=== PATIENT | female | born 1950 | race Caucasian/White ===

== ENCOUNTER → 2016-05-25 | Outpatient (CLI) | payer MEDICARE ==
--- NOTE | 2016-05-26 09:57 | ECHOF ---
Referral Reason:R06.09 Dyspnea on exertion MEASUREMENTS -------- HEIGHT: 157.5 cm WEIGHT: 65.8 kg BP: 176/79 RVIDd: 3.2 cm (< 3.3) IVSd: 1.2 cm (0.6 - 1.1) LVIDd: 3.5 cm (3.9 - 5.3) LVPWd: 1.0 cm (0.6 - 1.1) IVSs: 1.5 cm LVIDs: 2.4 cm LVPWs: 1.2 cm LA Diam: 2.9 cm (2.7 - 3.8) LAESV Index (A-L): 10.77 ml/m Ao Diam: 2.9 cm (2.0 - 3.7) AV Cusp: 1.7 cm (1.5 - 2.6) LA Diam: 2.4 cm (2.7 - 3.8) MV EXCURSION: 14.013 mm (> 18.000) MV EF SLOPE: 43 mm/s (70 - 150) EPSS: 0.3 cm MV E Elijah: 0.48 m/s MV DecT: 220 ms MV A Elijah: 1.04 m/s MV E/A Ratio: 0.46 FINDINGS -------- Resting tachycardia (HR>100bpm). This was a technically adequate study. There is borderline concentric left ventricular hypertrophy. Overall left ventricular systolic function is normal with, an EF between 55 - 60 %. The right ventricle is normal in size. Normal LA size by volume 22+/-6 ml/m2. The right atrium is normal in size. Aortic valve is trileaflet and is mildly thickened. Mild mitral annular calcification present. There is trace mitral regurgitation. Trace tricuspid regurgitation present. Trace/mild (physiologic) pulmonic regurgitation. The aortic root size is normal. Normal inferior vena cava with normal inspiratory collapse consistent with estimated right atrial pressure of 5 mmHg. Echo free space may represent effusion or a pericardial fat pad. CONCLUSIONS -------- 1. Resting tachycardia (HR>100bpm). 2. There is trace mitral regurgitation. 3. Trace tricuspid regurgitation present. 4. Trace/mild (physiologic) pulmonic regurgitation. 5. The aortic root size is normal. 6. Normal inferior vena cava with normal inspiratory collapse consistent with estimated right atrial pressure of 5 mmHg. 7. Echo free space may represent effusion or a pericardial fat pad. 8. This was a technically adequate study. 9. There is borderline concentric left ventricular hypertrophy. 10. Overall left ventricular systolic function is normal with, an EF between 55 - 60 %. 11. The right ventricle is normal in size. 12. Normal LA size by volume 22+/-6 ml/m2. 13. The right atrium is normal in size. 14. Aortic valve is trileaflet and is mildly thickened. 15. Mild mitral annular calcification present. SCREED OPERATOR: Christine Mock RDCS
== END | disposition home or self-care (01) ==
LOC: RADECHMAIN 16:05
PROVIDERS: ATTEND Family Medicine
DX: R00.0 Tachycardia, unspecified (principal); I36.1 Nonrheumatic tricuspid (valve) insufficiency; I34.0 Nonrheumatic mitral (valve) insufficiency; I37.1 Nonrheumatic pulmonary valve insufficiency; I34.8 Other nonrheumatic mitral valve disorders
CPT/HCPCS: 93306

== ENCOUNTER 2016-08-28 11:26 | Day surgery (SDC) | payer BC, MEDICARE ==
[2016-08-24 12:34] VITALS: BMI 26.5
--- NOTE | 2016-08-28 11:14 | P.HPIHPCON ---
History of Present Illness H&P Date: 08/28/16 Chief Complaint: Abdominal pain Patient is a 66 -year-old female who presented with lower abdominal pain this would've the upper part of the abdomen. She was admitted for this [facility]. At that time extensive testing was done a half. On she has distracting problems from her fibromyalgia. Home at that time the pain didn't find a localized in the epigastrium. Although the ultrasound was negative a HIDA scan did reveal bili dyskinesia. He did however tolerated diet and was discharged home to follow up as an outpatient. There was no history of jaundice regular chills. No history of weight loss. Measurement was a medication melena. There was no true change in appetite. Consent for Procedure: I have explained the operation/procedure to the patient, including the risks, benefits, side effects, alternative therapies (including not receiving the proposed treatment or service), the likelihood of the patient achieving his/her goals, and potential recuperation problems for the procedure/sedation/analgesia , as well as any blood products, if indicated. I also explained to the patient the risks, benefits and side effects of the alternatives, as well as the risks related to not receiving the proposed procedure, care, treatment, or services. - Constitutional Constitutional: Denies chills, Denies fever - EENT Eyes: denies blurred vision, denies pain - Cardiovascular Cardiovascular: Denies chest pain, Denies shortness of breath - Gastrointestinal Comment: Generalized pain - Musculoskeletal Musculoskeletal: Denies myalgias - Integumentary Integumentary: Denies pruritus, Denies rash Past Medical History Past Medical History: Fibromyalgia, Hyperlipidemia, Hypertension, Mitral Valve Prolapse (MVP), Pulmonary Embolus (PE), Skin Disorder Additional Past Medical History / Comment(s): MIN MVP. FUNGUS IN FINGERNAILS. History of Any Multi-Drug Resistant Organisms: None Reported Past Surgical History: Tonsillectomy Additional Past Surgical History / Comment(s): EXC GUSTABO CATARACTS. COLONOSCOPY. Past Anesthesia/Blood Transfusion Reactions: Previous Problems w/ Anesthesia Additional Past Anesthesia/Blood Transfusion Reaction / Comment(s): "HIGH TOLERANCE TO ANESTHESTHETICS IN PAST" Smoking Status: Former smoker - Past Family History Father Family Medical History: Cancer Mother Family Medical History: Cancer Medications and Allergies Home Medications Medication Instructions Recorded Confirmed Type Lydodir-[id number] 2 each PO DAILY 08/24/16 08/24/16 History [Excedrin] Escitalopram [Lexapro] 20 mg PO HS 08/24/16 08/24/16 History Gabapentin [Gabapentin] 600 mg PO TID 08/24/16 08/24/16 History Ketoconazole [Nizoral] 200 mg PO DAILY 08/24/16 08/24/16 History Metoprolol Succinate (ER) [Toprol 50 mg PO DAILY 08/24/16 08/24/16 History Xl] Triamterene-Hctz 37.5-25Mg 1 tab PO DAILY 08/24/16 08/24/16 History [Dyazide 37.5-25 Capsule] Allergies Allergy/AdvReac Type Severity Reaction Status Date / [facility] Allergy Rapid Verified 08/24/16 12:14 Heart Rate, CONFUSION, SWEATING Penicillins Allergy Unknown Verified 08/24/16 12:14 Childhood Surgical - Exam - General well developed, well nourished, no distress - Eyes PERRL, normal ocular movement - ENT normal pinna, normal nares, normal mucosa - Neck no masses - Respiratory normal expansion, normal respiratory effort - Abdomen Abdomen: soft, non tender - Integumentary no rash, no abnormal pigmentation - Neurologic no disoriented, no combative - Musculoskeletal normal gait, normal posture - Psychiatric oriented to time, oriented to person, oriented to place, speech is normal, memory intact Results - Imaging Additional studies: Margareth Morales has a HIDA scan with the ejection fraction of 20%. He she has also had an ultrasound which was a hydropic gallbladder Assessment and Plan (1) Biliary dyskinesia Status: Acute Plan: Due to continued symptoms from her bili dyskinesia have recommended robot- assisted laparoscopic cholecystectomy risks and benefits discussed and sinus we' ll proceed.
[~2016-08-28 11:26] MED LIST: CLINDAMYCIN 900 MG in DEXTROSE 5% IN WATER 50 ML IVPB ONE; DEXAMETHASONE SOD PHOSPHATE 10 MG/ML 1 ML VIAL IV ONE; HEPARIN SODIUM,PORCINE 5,000 UNIT/ML 1 ML VIAL SQ ONE; LACTATED RINGERS 1,000 ML IV SCH; ONDANSETRON 4 MG/2 ML VIAL IVP ONE; ceFAZolin 2 GM in SODIUM CHLORIDE 0.9% 100 ML IVPB ONE
[2016-08-28] MEDS ORDERED: LIDOCAINE 1% 20 ML VIAL (10MG/ML) FOR IV START INTRADERMA ONE (11:40)
[2016-08-28] MEDS ORDERED: MIDAZOLAM 2 MG/2 ML VIAL ONE (12:50)
[2016-08-28] MEDS ORDERED: PROPOFOL 10 MG/ML 20 ML VIAL IV ONE (12:50)
[2016-08-28] MEDS ORDERED: LIDOCAINE 1% INJ 10MG/ML (20 ML MDV) ONE (12:50)
[2016-08-28] MEDS ORDERED: ePHEDrine 50 MG/ML 1 ML AMP ONE (12:50)
[2016-08-28] MEDS ORDERED: NEOSTIGMINE 1 MG/ML 10 ML VIAL ONE (12:50)
[2016-08-28] MEDS ORDERED: ROCURONIUM BROMIDE 10 MG/ML 10 ML VIAL IV ONE (12:50)
[2016-08-28] MEDS ORDERED: GLYCOPYRROLATE 0.2 MG/ML 2 ML VIAL ONE (12:50)
[2016-08-28] MEDS ORDERED: HYDROmorphone (PF) 1 MG/ML ONE (12:50)
[2016-08-28] MEDS ORDERED: PHENYLEPHRINE-0.9% NACL SYG 1 MG/10 ML SYRINGE ONE (12:50)
[2016-08-28] MEDS ORDERED: fentaNYL (PF) 50 MCG/ML 2 ML AMP ONE (12:50)
[2016-08-28] MEDS ORDERED: BUPIVACAINE (PF) 0.25% 30 ML VIAL SQ ONE (13:21)
--- NOTE | 2016-08-28 14:48 | P.OP ---
Date of Procedure: 08/28/16 Preoperative Diagnosis: Biliary Dyskinesia Postoperative Diagnosis: chronic choelcystitis Procedure(s) Performed: Robot assisted laparoscpoic cholecystectomy Implants: Anesthesia: MAHENDRA Surgeon: Jeffrey Latham Pathology: other Condition: stable Indications for Procedure: Operative Findings: Inflammatro adhesion so fhte gall bladder Distended gall bladder Description of Procedure: Patient is a 66-year-old female who presented with right upper quadrant pain and a HIDA scan of 20 % EF with a distended gall bladder without stones. After appropriate informed consent and answering all the patient's questions patient taken the operating placement position and given general anesthesia with endotracheal intubation. After an unsuccessful attempt to use the Veress needle for insufflation at the infraumbilical region left upper quadrant was identified and Veress needle was used to enter the abdominal cavity and insufflated to 15 mmHg after confirming its position with the drop test. Once the abdomen insufflated 5 mm Optiview was used to enter the abdominal cavity through the infraumbilical incision. Three 8 mm ports were then placed for the robot in the left upper quadrant and right upper quadrant. The 5 mm port in the infraumbilical crease was replaced with a 12 mm port and a 5mm assist port was placed in the left lower quadrant. Once ports were then placed the patient was placed in appropriate position of left side down and reverse Trendelenburg. The robot was docked and Prograsp was taken in arm 3, [place] was taken and later replaced with bipolar fenestrated forceps in arm 2. Camera was through the 12 mm umbilical port site. And a hook cautery was taken in the arm 1. Gallbladder was retracted cephalad and superiorly. Inflammatory adhesions were taken down with the help of electrocautery. Appropriate critical view was obtained in cystic duct and artery were isolated. 2 clips proximally and 1 distally were plced in the artery and cystic duct and then and transected sharply with the help of scissors. The gallbladder was then taken off the gallbladder fossa with the help of electrocautery. There was inadvertent hole in the gallbladder which resulted in leakage of bile. All that was sucked dry. The abdomen was thoroughly irrigated and sucked dry. Gallbladder was then placed in Endo Catch bag and removed through 12 port site after undocking the robot. Abdomen was then again visualized and completely irrigated and sucked dry. 12 mm port site was closed with the help of a Octavio Eldridge under direct laparoscopic view using 0 Vicryl. At this point the procedure was terminated and all ports were removed. Local anesthesia infiltrated into the incisions skin was closed with 4-0 Monocryl and Dermabond was applied. Patient is tolerated the porcedure well with no complications. She was extubated and taken to recovery room in stable condition.
[2016-08-28] MEDS: HYDROmorphone 1 MG/ML 1 ML SYRINGE IVP PRN ×4 (14:55→15:15)
[2016-08-28 14:57] VITALS: TEMP 98.2
[2016-08-28] MEDS ORDERED: MEPERIDINE 50 MG/ML SYRINGE IVP ONE ×2 (15:25→15:37)
[2016-08-28] MEDS ORDERED: KETOROLAC 30 MG/ML 1 ML VIAL IVP ONE (15:56)
[2016-08-28 16:38] VITALS: BP 126/58; PULSE 75; RESP 18
[2016-08-28] MEDS ORDERED: HYDROcodone/APAP 5-325MG 1 EACH TAB PO ONE (16:45)
== END 2016-08-28 17:50 | disposition home or self-care (01) ==
LOC: OR 11:26
PROVIDERS: ATTEND Surgery
DX: K81.1 Chronic cholecystitis (principal); K66.0 Peritoneal adhesions (postprocedural) (postinfection); I10 Essential (primary) hypertension; I34.1 Nonrheumatic mitral (valve) prolapse; M79.7 Fibromyalgia; E78.5 Hyperlipidemia, unspecified; Z88.0 Allergy status to penicillin; Z88.8 Allergy status to other drugs, medicaments and biological substances; Z79.82 Long term (current) use of aspirin; Z79.899 Other long term (current) drug therapy; Z87.891 Personal history of nicotine dependence; Z86.711 Personal history of pulmonary embolism
CPT/HCPCS: 47562; 88304; J2250; J1644; J1100; J2710; J2175; J2405; J2001; J3010; J1885; J1170; J2370; J2704

== ENCOUNTER → 2017-12-05 | Outpatient (CLI) | payer MEDICARE ==
--- NOTE | 2017-12-06 07:56 | BD ---
EXAMINATION TYPE: Axial Bone Density DATE OF EXAM: 12/05/2017 COMPARISON: NONE CLINICAL HISTORY: Height: 62 Weight: 143.5 FRAX RISK QUESTIONS: Alcohol (3 or more units per day): no Family History (Parent hip fracture): no Glucocorticoids (More than 3mos): no (Ex: prednisone, prednisolone, methylprednisolone, dexamethasone, and hydrocortisone). History of Fracture in Adulthood: no Secondary Osteoporosis: 1. Type 1 Diabetes: no 2. Hyperthyroidism: no 3. Menopause before 45: no 4. Malnutrition: no 5. Chronic liver disease: no Rheumatoid Arthritis: no Current Tobacco Use: no RISK FACTORS HISTORY OF: Family History of Osteoporosis: yes /mother Active: yes Diet low in dairy products/other sources of calcium: yes Postmenopausal woman: age 51 Lost more than 2 inches in height since high school: no MEDICATIONS: Toprol, norvasc Additional History: EXAM MEASUREMENTS: Bone mineral densitometry was performed using the [email or web address] System. Bone mineral density as measured about the Lumbar spine is: ----- L1-L4(G/cm2): 1.183 T Score Values are as follows: ----- L2: -0.1 ----- L3: 0.6 ----- L4: 0.0 ----- L1-L4: 0.0 Bone mineral density has: decreased -7.4 % since study of: 6. Bone mineral density about the R hip (g/cm2): 0.944 Bone mineral density about the L hip (g/cm2): 0.813 T Score values are as follows: -----R Neck: -0.7 -----L Neck: -1.6 -----R Total: -1.0 -----L Total: -0.9 Bone mineral density has: decreased -10.0 % since study of: 6. IMPRESSION: Osteopenia right hip. NOTE: T-SCORE=SD OF THE YOUNG ADULT MEAN.
--- NOTE | 2017-12-09 09:12 | MM ---
Reason for exam: screening (asymptomatic). Last mammogram was performed 1 year and 10 months ago. History: Patient is postmenopausal. Family history of breast cancer in aunt at age 60. Physical Findings: A clinical breast exam by your physician is recommended on an annual basis and results should be correlated with mammographic findings. MG Screening Mammo w CAD Bilateral CC and MLO view(s) were taken. Prior study comparison: January 24, 2016, bilateral MG 3d screening mammo w/cad. October 26, 2014, bilateral MG screening mammo w CAD. Focal asymmetry right upper outer quadrant, stable. No significant changes when compared with prior studies. ASSESSMENT: Benign, BI-RAD 2 RECOMMENDATION: Routine screening mammogram of both breasts in 1 year.
== END ==
LOC: RADMAMWWP 15:41
PROVIDERS: ATTEND Family Medicine
DX: Z12.31 Encounter for screening mammogram for malignant neoplasm of breast (principal); M85.851 Other specified disorders of bone density and structure, right thigh; Z78.0 Asymptomatic menopausal state
CPT/HCPCS: 77067; 77080

== ENCOUNTER → 2019-10-06 | Outpatient (CLI) | payer MEDICARE ==
--- NOTE | 2019-10-08 09:23 | MM ---
Reason for exam: screening (asymptomatic). Last mammogram was performed 1 year and 10 months ago. History: Patient is postmenopausal. Family history of breast cancer in aunt at age 60. Physical Findings: A clinical breast exam by your physician is recommended on an annual basis and results should be correlated with mammographic findings. MG Screening Mammo w CAD Bilateral CC and MLO view(s) were taken. Prior study comparison: December 05, 2017, bilateral MG screening mammo w CAD. January 24, 2016, bilateral MG 3d screening mammo w/cad. There are scattered fibroglandular densities. Focal asymmetry right outer CC view. No significant changes when compared with prior studies. ASSESSMENT: Benign, BI-RAD 2 RECOMMENDATION: Routine screening mammogram of both breasts in 1 year.
== END | disposition home or self-care (01) ==
LOC: RADMAMWWP 13:51
PROVIDERS: ATTEND Internal Medicine Geriatric Medicine
DX: Z12.31 Encounter for screening mammogram for malignant neoplasm of breast (principal)
CPT/HCPCS: 77067

== ENCOUNTER → 2019-12-30 | Day surgery (SDC) | payer MEDICARE ==
[2019-12-28 16:51] VITALS: BMI 27.4
[~2019-12-30] MED LIST changes: -CLINDAMYCIN 900 MG in DEXTROSE 5% IN WATER 50 ML IVPB ONE; -DEXAMETHASONE SOD PHOSPHATE 10 MG/ML 1 ML VIAL IV ONE; -HEPARIN SODIUM,PORCINE 5,000 UNIT/ML 1 ML VIAL SQ ONE; -LACTATED RINGERS 1,000 ML IV SCH; +LIDOCAINE 1% INJ 10MG/ML (20 ML MDV) ONE; -ONDANSETRON 4 MG/2 ML VIAL IVP ONE; +PROPOFOL 10 MG/ML 20 ML VIAL IV ONE; -ceFAZolin 2 GM in SODIUM CHLORIDE 0.9% 100 ML IVPB ONE
[2019-12-30 09:03] VITALS: TEMP 97.9
[2019-12-30] MEDS: LACTATED RINGERS 1,000 ML IV SCH ×2 (09:09→10:00)
--- NOTE | 2019-12-30 10:19 | P.PCN ---
Date of Procedure: 12/30/19 Procedure(s) Performed: BRIEF HISTORY: Patient is a 69-year-old pleasant female scheduled for an elective colonoscopy as a part of screening for colorectal neoplasia and family history of colon cancer. Mother was diagnosed with colon cancer.. PROCEDURE PERFORMED: Colonoscopy. PREOPERATIVE DIAGNOSIS: Screening for colon cancer. IV sedation per Anesthesia. PROCEDURE: After informed consent was obtained, the patient, was brought into the endoscopy unit. IV sedation was administered by Anesthesia under continuous monitoring. Digital rectal examination was normal. Initially the Olympus CF-160 flexible video colonoscope was then inserted in the rectum, gradually advanced into the cecum without any difficulty. Careful examination was performed as the scope was gradually being withdrawn. Ileocecal valve and the appendiceal orifice were visualized and appeared normal. Prep was excellent. Mucosa of the cecum, ascending colon, transverse colon, descending colon, sigmoid colon, and rectum appeared normal. Retroflexion was performed in the rectum and no lesions were seen. The patient tolerated the procedure well. IMPRESSION: Normal-appearing colon from rectum to cecum with no evidence of colorectal neoplasia . RECOMMENDATIONS: Findings of this examination were discussed with the patient as well as a family. She was advised to have a repeat screening colonoscopy in 5 years because of the family history of colon cancer.
[2019-12-30 10:24] VITALS: RESP 16
[2019-12-30 10:35] VITALS: BP 111/55; PULSE 61
== END ==
LOC: ORWHC2ENDO 08:41
PROVIDERS: ATTEND Internal Medicine Gastroenterology
DX: Z12.11 Encounter for screening for malignant neoplasm of colon (principal); Z80.0 Family history of malignant neoplasm of digestive organs; I10 Essential (primary) hypertension; E78.5 Hyperlipidemia, unspecified; M79.7 Fibromyalgia; K58.9 Irritable bowel syndrome, unspecified; Z88.0 Allergy status to penicillin; Z88.8 Allergy status to other drugs, medicaments and biological substances; Z87.891 Personal history of nicotine dependence; Z79.899 Other long term (current) drug therapy; Z86.718 Personal history of other venous thrombosis and embolism
CPT/HCPCS: J2001; J2704; G0105

== ENCOUNTER → 2020-09-19 | Outpatient (CLI) | payer MEDICARE ==
--- NOTE | 2020-09-19 12:19 | XR ---
EXAMINATION TYPE: XR shoulder complete RT DATE OF EXAM: 09/19/2020 COMPARISON: NONE HISTORY: Pain TECHNIQUE: Shoulder examined in 3 views FINDINGS: The humeral head articulates with the glenoid. The acromio-clavicular junction is normal. No acute fractures or dislocations are evident. A follow up study can be performed 7-10 days from acute trauma for continued pain. IMPRESSION: 1. Normal three-view right Shoulder
== END | disposition home or self-care (01) ==
LOC: RADXRMAIN 11:56
PROVIDERS: ATTEND Nurse Practitioner Gerontology
DX: M25.511 Pain in right shoulder (principal)

== ENCOUNTER → 2021-01-03 | Outpatient (CLI) | payer MEDICARE ==
--- NOTE | 2021-01-09 12:09 | MM ---
Reason for exam: screening (asymptomatic). Last mammogram was performed 1 year and 3 months ago. History: Patient is postmenopausal. Family history of breast cancer in aunt at age 60. Physical Findings: A clinical breast exam by your physician is recommended on an annual basis and results should be correlated with mammographic findings. MG Screening Mammo w CAD Bilateral CC and MLO view(s) were taken. Prior study comparison: October 06, 2019, bilateral MG screening mammo w CAD. December 05, 2017, bilateral MG screening mammo w CAD. There are scattered fibroglandular densities. No significant changes when compared with prior studies. ASSESSMENT: Negative, BI-RAD 1 RECOMMENDATION: Routine screening mammogram of both breasts in 1 year.
== END | disposition home or self-care (01) ==
LOC: RADMAMWWP 14:12
PROVIDERS: ATTEND Internal Medicine Geriatric Medicine
DX: Z12.31 Encounter for screening mammogram for malignant neoplasm of breast (principal); Z78.0 Asymptomatic menopausal state; Z80.3 Family history of malignant neoplasm of breast
CPT/HCPCS: 77067

== ENCOUNTER → 2022-01-30 | Outpatient (CLI) | payer MEDICARE ==
--- NOTE | 2022-01-30 11:49 | BD ---
EXAMINATION TYPE: Axial Bone Density DATE OF EXAM: 01/30/2022 COMPARISON: NONE CLINICAL HISTORY: 71 years year old Female. ICD-10 CODE: M81.0 AGE-RELATED OSTEOPOROSIS Height: 62 Weight: 155.0 FRAX RISK QUESTIONS: Alcohol (3 or more units per day): no Family History (Parent hip fracture): no Glucocorticoids (More than 3mos): no (Ex: prednisone, prednisolone, methylprednisolone, dexamethasone, and hydrocortisone). History of Fracture in Adulthood: no Secondary Osteoporosis: 1. Type 1 Diabetes: no 2. Hyperthyroidism: no 3. Menopause before 45: no 4. Malnutrition: no 5. Chronic liver disease: no Rheumatoid Arthritis: no Current Tobacco Use: no RISK FACTORS HISTORY OF: Surgery to Spine/Hip(right/left)/Wrist (right/left): no Family History of Osteoporosis: yes Active: no Diet low in dairy products/other sources of calcium: yes Postmenopausal woman: yes Lost more than 2 inches in height since high school: no MEDICATIONS: Additional History: EXAM MEASUREMENTS: Bone mineral densitometry was performed using the [employer] System. Bone mineral density as measured about the Lumbar spine is: ----- L1-L4(G/cm2): 1.210 T Score Values are as follows: ----- L1: -0.6 ----- L2: 0.2 ----- L3: 1.2 ----- L4: -0.1 ----- L1-L4: 0.3 Bone mineral density has: increased 2.3 % since study of: 12.05.2017 Bone mineral density about the R hip (g/cm2): 0.869 Bone mineral density about the L hip (g/cm2): 0.786 T Score values are as follows: -----R Neck: -1.2 -----L Neck: -1.8 -----R Total: -1.2 -----L Total: -0.9 Bone mineral density has: decreased -1.6 % since study of: 12.05.2017 FRAX%s: The graph provided illustrates a 11.1% chance for a major osteoporotic fx and a 2.0% chance f or the hips probability for fx in 10 years time. IMPRESSION: Osteopenia (T Score between -2.5 and -1). There is slightly increased risk of fracture and the patient may be considered for treatment. Re-Screen 2-5 years. NOTE: T-SCORE=SD OF THE YOUNG ADULT MEAN.
--- NOTE | 2022-01-30 12:53 | MM ---
Reason for Exam: Screening (asymptomatic). Last mammogram was performed 1 year(s) and 1 month(s) ago. Patient History: Menarche at age 11. First Full-Term at age 28. Postmenopausal. Maternal aunt had breast cancer, age 60. Risk Values: Em 5 year model risk: 2.1%. NCI Lifetime model risk: 6.1%. Prior Study Comparison: 10/26/2014 Bilateral Screening Mammogram, [facility]. 01/24/2016 Bilateral Screening Mammogram, [facility]. 12/05/2017 Bilateral Screening Mammogram, [facility]. 10/06/2019 Bilateral Screening Mammogram, [facility]. 01/03/2021 Bilateral Screening Mammogram, [facility]. Tissue Density: There are scattered fibroglandular densities. Findings: Analyzed By CAD. There is no suspicious group of microcalcifications in either breast. No new suspicious mass in the left breast. Asymmetry demonstrated within the outer right breast middle depth on the CC view. Overall Assessment: Incomplete: need additional imaging evaluation, BI-RAD 0 Management: Diagnostic Mammogram of the right breast. A clinical breast exam by your physician is recommended on an annual basis and results should be correlated with mammographic findings. [facility] will attempt to contact patient to return for supplemental views and ultrasound if indicated. Electronically signed and approved by: Sergio Kang D.O.
== END | disposition home or self-care (01) ==
LOC: RADBDWWP 11:07
PROVIDERS: ATTEND Internal Medicine Geriatric Medicine
DX: Z12.31 Encounter for screening mammogram for malignant neoplasm of breast (principal); M81.0 Age-related osteoporosis without current pathological fracture; Z78.0 Asymptomatic menopausal state; Z80.3 Family history of malignant neoplasm of breast
CPT/HCPCS: 77067; 77080

== ENCOUNTER → 2022-02-05 | Outpatient (CLI) | payer MEDICARE ==
--- NOTE | 2022-02-05 10:06 | USB ---
Reason for Exam: Additional evaluation requested from abnormal screening. Patient History: Menarche at age 11. First Full-Term at age 28. Postmenopausal. Maternal aunt had breast cancer, age 60. Risk Values: Em 5 year model risk: 2.1%. NCI Lifetime model risk: 6.1%. Technique: Method: Targeted. Prior Study Comparison: 10/06/2019 Bilateral Screening Mammogram, [facility]. 01/03/2021 Bilateral Screening Mammogram, [facility]. 01/30/2022 Bilateral MG screening mammo w CAD, [facility]. Findings: The upper section of the breast of the right breast, the axilla of the right breast and the retroareolar of the right breast were scanned. A right US of upper-outer quadrant of the breast, axilla, and retro-areolar region were reviewed. No solid or cystic masses are identified.. Overall Assessment: Negative, BI-RAD 1 Management: Screening Mammogram of both breasts in 1 year. A clinical breast exam by your physician is recommended on an annual basis and results should be correlated with mammographic findings. This exam should not preclude additional follow-up of suspicious palpable abnormalities. Results were given to the patient verbally at the time of exam. Electronically signed and approved by: Cheko Urena DO
--- NOTE | 2022-02-05 10:09 | MM ---
Reason for Exam: Additional evaluation requested from abnormal screening. Last screening mammogram was performed less than 1 month ago. Patient History: Menarche at age 11. First Full-Term at age 28. Postmenopausal. Maternal aunt had breast cancer, age 60. Risk Values: Em 5 year model risk: 2.1%. NCI Lifetime model risk: 6.1%. Tissue Density: Right: The breast tissue is heterogeneously dense. This may lower the sensitivity of mammography. Findings: Analyzed By CAD. Cistern asymmetry in the right breast lateral aspect best appreciated on coronal cranial view. On compression imaging this lesion is more conspicuous and not definitively visualized. The asymmetry in the right breast lateral aspect at posterior depth is best appreciated on coronal cranial view. On compression imaging this lesion is more conspicuous and not definitively visualized. No new suspicious masses, ossifications or distortions. Overall Assessment: Incomplete: need additional imaging evaluation, BI-RAD 0 Management: Diagnostic Breast Ultrasound of the right breast. A clinical breast exam by your physician is recommended on an annual basis and results should be correlated with mammographic findings. This exam should not preclude additional follow-up of suspicious palpable abnormalities. Results were given to the patient verbally at the time of exam. Electronically signed and approved by: Cheko Urena DO
== END | disposition home or self-care (01) ==
LOC: RADMAMWWP 08:55
PROVIDERS: ATTEND Internal Medicine Geriatric Medicine
DX: R92.8 Other abnormal and inconclusive findings on diagnostic imaging of breast (principal); Z78.0 Asymptomatic menopausal state; Z80.3 Family history of malignant neoplasm of breast
CPT/HCPCS: 77065; 76642; G0279; 77061

== ENCOUNTER → 2022-10-05 | Outpatient (CLI) | payer MEDICARE ==
--- NOTE | 2022-10-05 13:32 | XR ---
EXAMINATION TYPE: XR ribs bilat w pa chest xray DATE OF EXAM: 10/05/2022 12:54 PM INDICATION: Patient age:Female; 72 years old; Reason for study: S22.24XS FX of Xiphoid process/sequela; COMPARISON: None. TECHNIQUE: Frontal and oblique views of the bilateral ribs with frontal chest radiograph. FINDINGS: The xiphoid process is not well visualized due to patient positioning. The ribs have a norm al appearance. No evidence of fracture. Overall, the lungs are clear. The cardiac silhouette is nor mal in size. The remaining osseous structures are intact. IMPRESSION: 1. The xiphoid process is not well visualized due to patient positioning. CT would provide better ev aluation for xiphoid fractures. 2. No definitive evidence for rib fracture.
== END | disposition home or self-care (01) ==
LOC: RADXRMAIN 12:36
PROVIDERS: ATTEND Internal Medicine Geriatric Medicine
DX: S22.2 Fracture of sternum (principal); X58.XXXS Exposure to other specified factors, sequela
CPT/HCPCS: 71111

== ENCOUNTER → 2023-02-21 | Outpatient (CLI) | payer MEDICARE ==
--- NOTE | 2023-02-23 16:44 | MM ---
Reason for Exam: Screening (asymptomatic). Last mammogram was performed 1 year(s) and 1 month(s) ago. Patient History: Menarche at age 11. First Full-Term at age 28. Postmenopausal. Maternal aunt had breast cancer, age 60. Risk Values: Em 5 year model risk: 2.1%. NCI Lifetime model risk: 5.9%. Prior Study Comparison: 01/03/2021 Bilateral Screening Mammogram, [facility]. 01/30/2022 Bilateral MG screening mammo w CAD, [facility]. 02/05/2022 Right MG 3D work up w/cad RT, [facility]. Tissue Density: There are scattered fibroglandular densities. Findings: Analyzed By CAD. The pattern is symmetrical and stable. No significant interval changes. No suspicious groups of microcalcifications, spiculated or lobular masses, architectural distortion or other secondary signs of malignancy are mammographically apparent. Overall Assessment: Benign, BI-RAD 2 Management: Screening Mammogram of both breasts in 1 year. A negative mammogram report should not preclude additional follow up of suspicious palpable abnormalities. Patient should continue monthly self breast exam. A clinical breast exam by your physician is recommended on an annual basis and results should be correlated with mammographic findings. Electronically signed and approved by: Jermain Hedrick D.O. Radiologis
== END | disposition home or self-care (01) ==
LOC: RADMAMWWP 12:43
PROVIDERS: ATTEND Internal Medicine Geriatric Medicine
DX: Z12.31 Encounter for screening mammogram for malignant neoplasm of breast (principal); Z80.3 Family history of malignant neoplasm of breast; Z78.0 Asymptomatic menopausal state
CPT/HCPCS: 77063; 77067

== ENCOUNTER → 2023-07-25 | Outpatient (CLI) | payer MEDICARE ==
--- NOTE | 2023-07-25 14:20 | US ---
EXAMINATION TYPE: US abdomen complete DATE OF EXAM: 07/25/2023 COMPARISON: CT 2009 CLINICAL INDICATION: Female, 73 years old with history of R10.9 ABD PAIN; Abdomen pain x couple weeks TECHNIQUE: Multiple sonographic images of the abdomen are obtained. FINDINGS: EXAM MEASUREMENTS: Liver Length: 14.2 cm CBD: 0.5 cm Spleen: 9.3 cm Right Kidney: 8.9 x 3.9 x 4.4 cm Left Kidney: 8.8 x 4.6 x 4.5 cm Pancreas: visualized portions wnl, limited by overlying midline bowel gas Liver: scanned intercostally Gallbladder: surgically absent Evidence for sonographic Gee's sign: no CBD: wnl Spleen: visualized portions wnl, limited by overlying bowel gas Right Kidney: wnl Left Kidney: wnl Upper IVC: wnl Abd Aorta: visualized portions wnl, limited by overlying midline bowel gas IMPRESSION: 1. Visualized portions of the pancreas within normal limits but the tail is obscured 2. Cholecystectomy 3. Unremarkable kidneys, liver, spleen and biliary tree.
== END | disposition home or self-care (01) ==
LOC: RADUSWWP 08:50
PROVIDERS: ATTEND Internal Medicine Geriatric Medicine
DX: R10.9 Unspecified abdominal pain (principal); Z90.49 Acquired absence of other specified parts of digestive tract
CPT/HCPCS: 76700

== ENCOUNTER → 2023-12-16 | Outpatient (CLI) | payer MEDICARE ==
[2023-12-16 10:30] LABS: African American GFR (CKD) 79 (>60 ml/min/1.73 sqM); Blood Urea Nitrogen 14 mg/dL (7-17); Non-African American GFR(CKD) 68 (>60 ml/min/1.73 sqM)
--- NOTE | 2023-12-16 12:31 | CT ---
EXAMINATION TYPE: CT abdomen pelvis w con CT DLP: 805 mGycm, Automated exposure control for dose reduction was used. DATE OF EXAM: 12/16/2023 12:14 PM COMPARISON: Abdominal ultrasound 07/25/[address] and pelvis 12/09/2009 CLINICAL INDICATION:Female, 73 years old with history of R10.9 ABD PAIN; Epigastric pain TECHNIQUE: Standard CT of the abdomen and pelvis following the administration of 100 cc of Isovue 3 00 IV contrast material and oral contrast. Coronal and sagittal reformats were performed. FINDINGS: LOWER CHEST: Unremarkable ABDOMEN LIVER: Unremarkable GALLBLADDER AND BILE DUCTS: The gallbladder is surgically absent. PANCREAS: Unremarkable. SPLEEN: Unremarkable. ADRENAL GLANDS: Right adrenal gland unremarkable. Stable left adrenal gland nodule dating back to 201 0 and considered benign. KIDNEYS AND URETERS: No evidence of hydronephrosis or renal calculus. The kidneys enhance symmetrical ly. Focal region of anterior superior pole cortical thinning likely related to prior injury. Contrast is demonstrated within both collecting systems on delayed phase. PELVIS BLADDER: Unremarkable REPRODUCTIVE: Unremarkable. ABDOMEN & PELVIS STOMACH AND BOWEL: Small hiatal hernia, duodenum is unremarkable. Colonic stool burden. Enteric contr ast reaches the ascending colon. Circumferential short segment wall thickening of the ascending colon measuring up to 1.2 cm in thickness (series 3, 53). No surrounding inflammatory changes. No evidence of bowel obstruction. PERITONEUM: No evidence of pneumoperitoneum or free fluid. VASCULATURE: Mild atherosclerotic calcifications are present throughout the abdominal aorta and its b ranches. No evidence of aortic aneurysm. MUSCULOSKELETAL: No acute osseous abnormalities. Mild disc degeneration changes are present throughou t the thoracolumbar spine. LYMPH NODES: No evidence for lymphadenopathy. SOFT TISSUE/ABDOMINAL WALL: Unremarkable IMPRESSION: 1. Short segment circumferential wall thickening of the ascending colon which could be seen with inf ectious/inflammatory etiology versus malignancy. No surrounding inflammatory changes. Direct visualiz ation is recommended. 2. Moderate colonic stool burden. 3. Small hiatal hernia. [facility], , 12/16/2023 12:28 PM
== END | disposition home or self-care (01) ==
LOC: RADCTMAIN 09:51
PROVIDERS: ATTEND Internal Medicine Geriatric Medicine
DX: K44.9 Diaphragmatic hernia without obstruction or gangrene (principal); K63.89 Other specified diseases of intestine; R19.5 Other fecal abnormalities
CPT/HCPCS: 82565; 84520; 74177; 36415; Q9967